=== PATIENT | male | born 1995 | race Caucasian/White ===

== ENCOUNTER 2017-05-19 13:04 | Emergency (ER) | payer OTHER ==
[~2017-05-19] VITALS: Ht 180.3 cm; Wt 77.3 kg
[2017-05-19] MEDS ORDERED: IBUPROFEN 600 MG TAB PO ONE (15:00)
[2017-05-19 15:55] VITALS: BP 116/65
--- NOTE | 2017-05-19 20:21 | REP ---
LEFT HIP, TWO VIEWS: HISTORY: Pain. There is no acute fracture or dislocation. The joint space is normal in appearance. IMPRESSION: There is no acute fracture or dislocation. Signed by Jack Riddle MD 05/20/2017 07:49 A
== END 2017-05-19 15:57 | disposition home or self-care (01) ==
LOC: M ED 13:04
DX: G89.29 Other chronic pain (principal); M25.552 Pain in left hip

== ENCOUNTER → 2017-06-26 | Outpatient (CLI) | payer OTHER ==
[~2017-06-26] MED LIST: CONRAY-43 43% 50ML VIAL (Q9960) As Ordered ONE; PROHANCE 279.3MG/ML 5ML VIAL (A9576) As Ordered ONE
--- NOTE | 2017-06-26 10:58 | REP ---
MR ARTHROGRAM LEFT HIP: TECHNIQUE: Coronal T1, STIR through the pelvis, post arthrogram axial T1 fat sat, T2 fat sat, coronal T1 fat sat, T2 fat sat, sagittal T1 fat sat, axial oblique T1 fat sat left hip. The visualized osseous structures demonstrate normal marrow signal. There is no occult fracture. There is no evidence of avascular necrosis of either femoral head. There does appear to be a tear of the anterior labrum of the left hip. No other tear is seen. There is no paralabral cyst. There is a tiny amount of fluid along the greater trochanter of the proximal left femur suggesting some minimal greater trochanteric tendinobursitis. Other surrounding soft tissue structures demonstrate no abnormal signal. There is no joint effusion. Within the visualized portions of the pelvis, there appears to be a tiny amount of nonspecific free fluid. IMPRESSION: Anterior labral tear of the left hip. Minimal left greater trochanteric tendinobursitis. Signed by Javier Segovia MD 06/26/2017 05:23 P
--- NOTE | 2017-06-27 14:20 | REP ---
Left hip arthrogram The procedure was performed under the direction supervision of Dr. Segovia. The benefits and risks including but not limited to pain, infection, bleeding and anaphylaxis were explained to the patient and informed consent was obtained. The left femoral neck was localized using fluoroscopic guidance. Skin was prepped and draped in a sterile fashion. 1% lidocaine was used as a local anesthetic. Using fluoroscopic guidance a 22 gauge spinal needle was inserted and advanced to the femoral neck. 0.5 ml of Conray 43 was injected to verify placement. 11 ml of a solution containing 20 ml of sterile saline and 0.15 ml of ProHance was injected into the joint. The needle was removed and the patient was taken to MRI for postprocedural imaging. The the patient tolerated the procedure well and there were no immediate complications. Less than 6 seconds of fluoro time was utilized for this procedure. Reviewed by OZ Patel 06/26/2017 04:10 PSigned by Javier Segovia MD 06/26/2017 05:19 P
== END ==
LOC: M RADPRO 07:27
PROVIDERS: ATTEND Physician Assistant
DX: M25.552 Pain in left hip (principal); M24.152 Other articular cartilage disorders, left hip; M70.62 Trochanteric bursitis, left hip
CPT/HCPCS: 27093; 73723; 77002; A9576; Q9960

== ENCOUNTER → 2017-08-21 | Outpatient (CLI) | payer OTHER ==
[~2017-08-21] MED LIST changes: +CONRAY-43 43% 50ML VIAL (Q9960) As Ordered; -CONRAY-43 43% 50ML VIAL (Q9960) As Ordered ONE; +LIDOCAINE 1% MDV 20ML VIAL As Ordered; -PROHANCE 279.3MG/ML 5ML VIAL (A9576) As Ordered ONE; +TRIAMCINOLONE ACETONIDE SUSP 40 MG/ML VIAL (J3301) As Ordered
== END ==
LOC: M RADPRO 08:15
DX: M25.552 Pain in left hip (principal); S73.192A Other sprain of left hip, initial encounter; X58.XXXA Exposure to other specified factors, initial encounter; Y92.89 Other specified places as the place of occurrence of the external cause; Y93.89 Activity, other specified; Y99.8 Other external cause status
CPT/HCPCS: 20610